=== PATIENT | female | born 1980 | race Two or more races ===

== ENCOUNTER → 2019-06-30 | Outpatient (CLI) | payer OTHER ==
--- NOTE | 2019-06-30 17:02 | RADIOLOGY REPORT (SQ) ---
EXAM DESCRIPTION: CT PELVIS WITH COMPLETED DATE/TIME: 06/30/2019 1:55 pm REASON FOR STUDY: K62.89 OTHER SPECIFIED DISEASES OF ANUS AND RECTUM K62.89 OTHER SPECIFIED DISEASE S OF ANUS AND RECTUM COMPARISON: None. TECHNIQUE: CT scan of the pelvis performed without intravenous or oral contrast. Images reviewed wi th soft tissue and bone windows. Reconstructed coronal and sagittal MPR images reviewed. All images stored on PACS. All CT scanners at this facility use dose modulation, iterative reconstruction, and/or weight based d osing when appropriate to reduce radiation dose to as low as reasonably achievable (ALARA). [facility]: Dose Right [facility]: CareDose [facility]: Dose Right [facility]: Teradose 4D [facility]: [employer] RADIATION DOSE: CT Rad equipment meets quality standard of care and radiation dose reduction techniq ues were employed. CTDIvol: 13.2 - 16.4 mGy. DLP: 1099 mGy-cm. mGy. LIMITATIONS: None. FINDINGS: PELVIC BONES: No acute fracture. No worrisome bone lesions. VISUALIZED SPINE: No acute findings. HIP(S): No acute fracture or dislocation. No worrisome bone lesions. PELVIC SOFT TISSUES: There are some small left ovarian cyst. The largest measures 21 mm. No abnorma l pelvic fluid collection is seen. No other pelvic mass is seen. Urinary bladder appears normal. EXTRAPELVIC SOFT TISSUES: No significant findings. OTHER: No other significant finding. IMPRESSION: Small left ovarian cysts, almost certainly benign. No additional imaging is required fo r these. TECHNICAL DOCUMENTATION: JOB ID: [id number] Quality ID # [id number]: Final reports with documentation of one or more dose reduction techniques (e.g., Au tomated exposure control, adjustment of the mA and/or kV according to patient size, use of iterative reconstruction technique) 2010 [email or web address]- All Rights Reserved Reading location - IP/workstation name: [email or web address]
== END ==
LOC: RAD 13:21
PROVIDERS: ATTEND Surgery
DX: K62.89 Other specified diseases of anus and rectum (principal)
CPT/HCPCS: 72193; 82565

== ENCOUNTER 2019-07-27 13:10 | Day surgery (SDC) | payer OTHER ==
[2019-07-25 09:48] LABS: ABSOLUTE EOSINOPHILS # (AUTO) 0.2 10^3/uL (0.0-0.6); ABSOLUTE LYMPHOCYTES (AUTO) 1.7 10^3/uL (0.5-4.7); ABSOLUTE MONOCYTES (AUTO) 0.6 10^3/uL (0.1-1.4); ABSOLUTE NEUT (AUTO) 3.8 10^3/uL (1.7-8.2); BASOPHILS % (AUTO) 0.5 % (0-2); EOSINOPHILS % (AUTO) 2.4 % (0-6); HEMATOCRIT 34.2 % (36.0-47.0); HEMOGLOBIN 11.4 g/dL (12.0-15.5); LYMPHOCYTES % (AUTO) 27.2 % (13-45); MEAN CORPUSCULAR HEMOGLOBIN 26.4 pg (27.0-33.4); MEAN CORPUSCULAR HGB CONC 33.2 g/dL (32.0-36.0); MEAN CORPUSCULAR VOLUME 80 fl (80-97); MONOCYTES % (AUTO) 9.7 % (3-13); PLATELET COUNT 470 10^3/uL (150-450); RED CELL DISTRIBUTION WIDTH 15.5 % (11.5-14.0); SEGMENTED NEUTROPHILS % (AUTO) 60.2 % (42-78); TOTAL CELLS COUNTED % (AUTO) 100 %; WHITE BLOOD COUNT 6.2 10^3/uL (4.0-10.5)
[~2019-07-27 13:10] MED LIST: CEFAZOLIN SODIUM 2 GM in DEXTROSE 5%-WATER 100 ML IV PRN; LACTATED RINGERS 1000 ML IV PRN; LIDOCAINE 0.5% INJ-PF (5 MG/ML) 50 ML SDV SUBCUT PRN
[2019-07-27] MEDS ORDERED: MIDAZOLAM 2 MG/2 ML INJ ONE ×2 (13:54→16:03)
[2019-07-27] MEDS ORDERED: SCOPOLAMINE HYDROBROMIDE 1.5 MG PATCH.TD72 ONE (13:54)
[2019-07-27] MEDS ORDERED: RINGERS SOLUTION,LACTATED 1,000 ML IV ONE (15:00)
[2019-07-27] MEDS ORDERED: PROPOFOL INJ 200 MG/20 ML VIAL IV ONE (16:03)
[2019-07-27] MEDS ORDERED: FENTANYL CITRATE INJ/PF 100 MCG/2 ML AMPUL ONE ×2 (16:03→16:48)
[2019-07-27] MEDS ORDERED: LIDOCAINE 0.5% INJ-PF (5 MG/ML) 50 ML SDV ONE (16:04)
[2019-07-27] MEDS ORDERED: MORPHINE SULFATE 10 MG/ML INJ IV PRN (16:37)
[2019-07-27] MEDS ORDERED: DIPHENHYDRAMINE HCL 50 MG/ML VIAL IV PRN (16:37)
[2019-07-27] MEDS ORDERED: OXYCODONE-ACETAMINOPHEN 5-325 MG TABLET PO PRN ×2 (16:37)
[2019-07-27] MEDS ORDERED: MEPERIDINE HCL/PF INJ 25 MG/1 ML DISP.SYRIN IV PRN (16:37)
[2019-07-27] MEDS ORDERED: FENTANYL CITRATE INJ/PF 100 MCG/2 ML AMPUL IV PRN ×2 (16:37)
[2019-07-27] MEDS ORDERED: PROMETHAZINE HCL INJ 25 MG/1 ML VIAL IV PRN ×2 (16:37)
--- NOTE | 2019-07-27 16:40 | Discharge Summary ---
Discharge Summary (SDC) - Discharge Final Diagnosis: hemorrhoids Date of Surgery: 07/27/19 Discharge Date: 07/27/19 Condition: Good Treatment or Instructions: sitz baths with epsoms salt tid for 30 mins each time. Referrals: ARTI PETERS PA-C [Primary Care Provider] - Discharge Diet: As Tolerated Discharge Activity: Activity As Tolerated, No Lifting Over 10 Pounds Report the Following to Your Physician Immediately: Shortness of Breath, Vomiting, Yellow Skin - pt needs a f/u with me in 2-3 wk.s, Fever over 101 Degrees
--- NOTE | 2019-07-27 16:43 | Operative Report ---
Nonrecallable Operative Report DATE OF SURGERY: 07/27/19 PREOPERATIVE DIAGNOSIS: hemorrhoids, anal pain POSTOPERATIVE DIAGNOSIS: grade 3 hemorrhoids OPERATION: exam under anesthesia and hemorrhoidal banding x3 SURGEON: PEGGY PANDYA ANESTHESIA: GA TISSUE REMOVED OR ALTERED: none COMPLICATIONS: none ESTIMATED BLOOD LOSS: 15cc PROCEDURE: Patient was brought to the operating room and awake alert stable condition placed in the upper table supine position induced under general anesthesia. She was then placed up in a high lithotomy position the perineum and rectum were prepped and draped in usual sterile fashion. After appropriate timeout and site verification the procedure commenced. Digital exam revealed no evidence of mass in the anus or the distal rectum. Then using the anoscope we examined all 4 quadrants of the rectum and did not identify a anal fissure or fistula. However there were grade 3 hemorrhoids or large and prolapsing they were located at the 1 o'clock position the 7 o'clock position in the 11 o'clock position. Using a hemorrhoidal retail management trainee all 3 hemorrhoidal сергей were banded sequentially. Hemostasis was obtained with pressure. After obtaining good hemostasis the procedure completed. Patient tolerated procedure well was transferred recovery in stable condition
[2019-07-27] MEDS: FENTANYL CITRATE INJ/PF 100 MCG/2 ML AMPUL IV PRN ×2 (16:50→17:00)
[2019-07-27 18:52] VITALS: BP 135/78
== END 2019-07-27 18:45 | disposition home or self-care (01) ==
LOC: OROUT 13:10
PROVIDERS: ATTEND Surgery
DX: K64.2 Third degree hemorrhoids (principal); K62.89 Other specified diseases of anus and rectum; R56.9 Unspecified convulsions; E78.00 Pure hypercholesterolemia, unspecified; Z79.899 Other long term (current) drug therapy
CPT/HCPCS: 36415; 85025; 81025; 00902; 46221; J2250; J0690; J3010; J3490; J7060; J2704; 902